=== PATIENT | male | born 1975 | race Caucasian/White ===

== ENCOUNTER 2019-03-28 06:20 | Emergency (ER) | payer OTHER ==
[~2019-03-28] VITALS: Ht 190.5 cm; Wt 97.5 kg
[2019-03-28 06:24] VITALS: BP 141/111
--- NOTE | 2019-03-28 06:24 | NUR ---
0621-- PT BIB WHEELCHAIR TO ER BED 9
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
[2019-03-28] MEDS ORDERED: hydrALAZINE 20 MG/ML VIAL IVP ONE (06:35)
[2019-03-28] MEDS ORDERED: MORPHINE SULFATE 2 MG/ML SYR IVP ONE (06:35)
[2019-03-28] MEDS ORDERED: NACL 0.9% 1,000 ML IV ONE (06:35)
--- NOTE | 2019-03-28 06:44 | NUR ---
EKG PERFORMED AT BEDSIDE
[2019-03-28 06:46] LABS: BASOPHILS % (AUTO) 0.5 % (0.0-2.0); EOSINOPHILS # (AUTO) 0.1 K/uL (0-0.4); EOSINOPHILS % (AUTO) 1.1 % (0.0-4.0); HEMATOCRIT 43.1 % (36-52); HEMOGLOBIN 14.4 g/dL (12.0-18.0); LYMPHOCYTES # (AUTO) 1.4 K/uL (2.0-11.5); LYMPHOCYTES % (AUTO) 19.3 % (20.5-51.1); MEAN CORPUSCULAR HEMOGLOBIN 29 pg (27-31); MEAN CORPUSCULAR HGB CONC 34 g/dL (33-37); MEAN CORPUSCULAR VOLUME 85.4 fL (80-94); MONOCYTES # (AUTO) 0.5 K/uL (0.8-1.0); MONOCYTES % (AUTO) 6.4 % (1.7-9.3); NEUTROPHILS # (AUTO) 5.2 K/uL (1.8-7.7); NEUTROPHILS % (AUTO) 72.7 % (42.2-75.2); PLATELET COUNT (AUTO) 235 K/uL (140-450); RED BLOOD CELL COUNT(AUTO) 5.05 MIL/uL (4.20-6.10); RED CELL DISTRIBUTION WIDTH 13.9 % (11.6-13.7); WHITE BLOOD COUNT (AUTO) 7.2 K/uL (4.8-10.8)
--- NOTE | 2019-03-28 06:51 | NUR ---
X-RAY AT BEDSIDE.
[2019-03-28 06:59] LABS: ANION GAP 12.1 (8-16); CARBON DIOXIDE 24.9 mmol/L (21-32); CREATININE 1.1 mg/dL (0.7-1.3)
[2019-03-28 07:03] LABS: ALBUMIN 3.6 g/dL (3.4-5.0); TOTAL BILIRUBIN 0.3 mg/dL (0.0-1.0)
--- NOTE | 2019-03-28 07:10 | NUR ---
Bedside patient report given to DONAVON Lino; VSS. Transfer of care at this time.
--- NOTE | 2019-03-28 07:15 | NUR ---
PT AAO X4. FULL CLEAR SPEECH. PT DENIES DIZZINESS, SOB. NO SIGNS AND SYMPTOMS OF DISTRESS NOTED. SAFETY ENSURED. GIRLFRIEND AT BEDSIDE.
--- NOTE | 2019-03-28 07:19 | NUR ---
DR SRIVASTAVA AT BEDSIDE FOR PT EVALUATION
[2019-03-28] MEDS ORDERED: MECLIZINE 25 MG TAB PO ONE (07:30)
[2019-03-28] MEDS ORDERED: cefTRIAXone 1,000 MG in LIDOCAINE 1% ***ER ONLY *** 2.1 ML IM ONE (07:30)
[2019-03-28] MEDS ORDERED: DEXAMETHASONE 10 MG/ML VIAL IM ONE (07:30)
[2019-03-28 07:34] LABS: BARBITURATE, URINE NEG. ng/ml (NEG <=200); BENZODIAZEPINE, URINE NEG. ng/mL (NEG <=200); CANNABINOID, URINE POS. ng/mL (NEG <=50); COCAINE, URINE NEG. ng/mL (NEG <=300); OPIATE, URINE POS. ng/mL (NEG <=2000); PHENCYCLIDINE SCREEN,URINE NEG. ng/mL (NEG <=25)
[2019-03-28 07:35] LABS: APPEARANCE,URINE CLEAR (CLEAR); BILIRUBIN,URINE NEGATIVE (NEGATIVE); BLOOD, URINE NEGATIVE (NEGATIVE); COLOR,URINE YELLOW (YELLOW); LEUKOCYTE ESTERASE ,URINE NEGATIVE (NEGATIVE); NITRITE, URINE NEGATIVE (NEGATIVE); PH,URINE 7.5 (5.0-9.0); UGLUCOSE NEGATIVE (NEGATIVE)
[2019-03-28] MEDS ORDERED: cefTRIAXone 1,000 MG VIAL ONE (07:48)
[2019-03-28] MEDS ORDERED: LIDOCAINE MPF 1% - 5 mL VIAL 5 ML ONE (07:49)
[2019-03-28 08:03] LABS: RBC,URINE 0-5 /HPF (0-5)
[2019-03-28 08:04] LABS: WBC,URINE 0-5 /HPF (0-5)
--- NOTE | 2019-03-28 08:21 | NUR ---
pt being taken to ct via wheelchair
--- NOTE | 2019-03-28 08:32 | NUR ---
PT BACK TO ROOM FROM CT VIA WHEEL CHAIR
--- NOTE | 2019-03-28 09:09 | NUR ---
DR SRIVASTAVA AT BEDSIDE FOR PT RE EVALUATION
[2019-03-28 09:24] VITALS: BP 116/64
--- NOTE | 2019-03-28 09:24 | NUR ---
Patient discharged with v/s stable. Written and verbal after care instructions given and explained. Patient alert, oriented and verbalized understanding of instructions. Ambulatory with steady gait. All questions addressed prior to discharge. ID band removed. Patient advised to follow up with PMD. Rx of Prednisone, Antivert, Levaquin given. Patient educated on indication of medication including possible reaction and side effects. Opportunity to ask questions provided and answered.
== END 2019-03-28 09:24 | disposition home or self-care (01) ==
LOC: MED 06:20
DX: R55 Syncope and collapse (principal); R07.0 Pain in throat; E78.00 Pure hypercholesterolemia, unspecified; F17.210 Nicotine dependence, cigarettes, uncomplicated; F12.10 Cannabis abuse, uncomplicated; Z71.6 Tobacco abuse counseling
CPT/HCPCS: 36415; 70450; 71045; 80053; 80305; 81001; 84484; 85025; 93005; 96361; 96372; 96374; 96375; 99284; J0360; J0696; J1100; J2001; J2270; J7030; J8597

== ENCOUNTER 2019-05-06 07:02 | Emergency (ER) | payer OTHER ==
[~2019-05-06] VITALS: Ht 190.5 cm; Wt 95.3 kg
[2019-05-06 07:11] VITALS: BP 126/90
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
--- NOTE | 2019-05-06 08:13 | NUR ---
DR. GAO AT BEDSIDE.
--- NOTE | 2019-05-06 08:22 | NUR ---
EMT AT BEDSIDE FOR EKG.
--- NOTE | 2019-05-06 08:23 | NUR ---
CABLE SWAGER AT BEDSIDE.
[2019-05-06 08:36] LABS: BASOPHILS # (AUTO) 0.1 K/uL (0.00-0.22); BASOPHILS % (AUTO) 0.8 % (0.0-2.0); EOSINOPHILS # (AUTO) 0.1 K/uL (0-0.4); EOSINOPHILS % (AUTO) 0.9 % (0.0-4.0); HEMATOCRIT 45.8 % (36-52); LYMPHOCYTES # (AUTO) 1.5 K/uL (2.0-11.5); LYMPHOCYTES % (AUTO) 13.6 % (20.5-51.1); MEAN CORPUSCULAR HEMOGLOBIN 28 pg (27-31); MEAN CORPUSCULAR HGB CONC 33 g/dL (33-37); MEAN CORPUSCULAR VOLUME 86.3 fL (80-94); MONOCYTES # (AUTO) 0.6 K/uL (0.8-1.0); MONOCYTES % (AUTO) 5.6 % (1.7-9.3); NEUTROPHILS # (AUTO) 8.9 K/uL (1.8-7.7); NEUTROPHILS % (AUTO) 79.1 % (42.2-75.2); PLATELET COUNT (AUTO) 208 K/uL (140-450); RED BLOOD CELL COUNT(AUTO) 5.31 MIL/uL (4.20-6.10); RED CELL DISTRIBUTION WIDTH 13.9 % (11.6-13.7); WHITE BLOOD COUNT (AUTO) 11.3 K/uL (4.8-10.8)
--- NOTE | 2019-05-06 08:37 | NUR ---
DEMAND PLANNER TOOK URINE SAMPLE.
[2019-05-06 08:44] LABS: ANION GAP 11.7 (8-16); CARBON DIOXIDE 27.6 mmol/L (21-32); CHLORIDE 107 mmol/L (98-107); GFR ARICAN-AMERICAN 105 mL/min (>90); GLUCOSE 100 mg/dL (74-106); POTASSIUM 4.3 mmol/L (3.5-5.1); SODIUM SERUM 142 mmol/L (136-145); UREA NITROGEN, BLOOD 19 mg/dL (7-18)
[2019-05-06 08:48] LABS: BARBITURATE, URINE NEG. ng/ml (NEG <=200); BENZODIAZEPINE, URINE NEG. ng/mL (NEG <=200); CANNABINOID, URINE POS. ng/mL (NEG <=50); COCAINE, URINE NEG. ng/mL (NEG <=300); OPIATE, URINE NEG. ng/mL (NEG <=2000); PHENCYCLIDINE SCREEN,URINE NEG. ng/mL (NEG <=25)
[2019-05-06 08:49] LABS: ALBUMIN 3.6 g/dL (3.4-5.0); ASPARTATE AMINOTRANSFERASE 20 U/L (15-37); TOTAL BILIRUBIN 0.3 mg/dL (0.0-1.0)
--- NOTE | 2019-05-06 08:51 | NUR ---
NOTIFIED RADIOLOGY THAT CONSENT OBTAINED AND IV ACCESS PLACED. RADIOLOGY TO COME GET PATIENT AFTER LABS RESULT.
--- NOTE | 2019-05-06 09:05 | NUR ---
IC DESIGNER STANDARD CELLS HERE TO TAKE PT.
--- NOTE | 2019-05-06 09:21 | NUR ---
PT BACK FROM CT.
--- NOTE | 2019-05-06 11:10 | NUR ---
PER DR. GAO, KEEP PT NPO.
[2019-05-06] MEDS ORDERED: MED (11:18)
--- NOTE | 2019-05-06 11:18 | NUR ---
PT STATES HE IS HUNGRY, LIGHTHEADED, AND PRE-DM. CHECK BLOOD SUGAR WITH 94 RESULT.
--- NOTE | 2019-05-06 11:38 | NUR ---
Dr. Martinez evaluating patient at bedside.
--- NOTE | 2019-05-06 12:18 | NUR ---
REPORT GIVEN TO MILTON KAHN RN AT [facility].
[2019-05-06 12:50] VITALS: BP 149/68
--- NOTE | 2019-05-06 12:50 | NUR ---
PT LEFT UNIT WITH TRANSPORTATION TEAM . VSS.
== END 2019-05-06 12:50 | disposition short-term general hospital (02) ==
LOC: MED 07:02
DX: R42 Dizziness and giddiness (principal); R26.2 Difficulty in walking, not elsewhere classified; R47.81 Slurred speech; E78.5 Hyperlipidemia, unspecified
CPT/HCPCS: 36415; 70470; 70492; 80053; 80305; 82948; 84484; 85025; 93005; 99285; G0482; Q9967; 99284